=== PATIENT | female | born 1965 | race Caucasian/White ===

== ENCOUNTER 2025-07-05 12:19 | Emergency (ER) | payer BC, MEDICAID ==
[~2025-07-05] VITALS: Ht 162.6 cm; Wt 59.9 kg
[2025-07-05 13:59] LABS: PLATELET COUNT (AUTO) 190 K/uL (150-450); RED BLOOD CELL COUNT(AUTO) 4.70 MIL/uL (4.0-5.2); RED CELL DISTRIBUTION WIDTH 14.1 % (11.5-15.0); WHITE BLOOD COUNT (AUTO) 5.9 K/uL (4.3-11.0)
[2025-07-05 14:18] LABS: CALCIUM, SERUM 8.4 mg/dL (8.5-10.1); CREATININE 0.9 mg/dL (0.6-1.3); SODIUM SERUM 141 mmol/L (136-145); UREA NITROGEN, BLOOD 15 mg/dL (7-18)
[2025-07-05 14:22] LABS: ALCOHOL, BLOOD < 3 mg/dL (0-10); ASPARTATE AMINOTRANSFERASE 18 U/L (15-37); TOTAL PROTEIN, SERUM 7.3 g/dL (6.4-8.2)
[2025-07-05] MEDS ORDERED: MECLIZINE HCL 25 MG TABLET ONE (14:32)
[2025-07-05] MEDS: IV LR 1000 ML 1,000 ML IV ONE (14:35)
[2025-07-05] MEDS: MECLIZINE HCL 25 MG TABLET PO ONE (14:36)
[2025-07-05 14:56] LABS: APPEARANCE,URINE CLEAR (CLEAR); BLOOD, URINE TRACE-INTA Ery/uL (NEGATIVE); LEUKOCYTE ESTERASE ,URINE NEGATIVE (NEGATIVE); NITRITE, URINE NEGATIVE (NEGATIVE); UGLUCOSE NEGATIVE (NEGATIVE)
[2025-07-05 15:08] LABS: AMPHETAMINE, URINE NEGATIVE (NEGATIVE); BARBITURATE, URINE NEGATIVE (NEGATIVE); BENZODIAZEPINE, URINE NEGATIVE (NEGATIVE); COCCAINE, URINE NEGATIVE (NEGATIVE); OPIATE, URINE NEGATIVE (NEGATIVE)
[2025-07-05 15:09] LABS: CANNABINOID, URINE POSITIVE (NEGATIVE)
[2025-07-05 15:13] LABS: ADD URINE CULTURE NO; SQUAMOUS EPITHELIAL CELL,UR Few /HPF (None Seen)
[2025-07-05 15:41] VITALS: BP 122/72; TEMP 98.1; O2SAT 97
== END 2025-07-05 15:41 | disposition home or self-care (01) ==
LOC: ER 12:27
DX: R55 Syncope and collapse (principal); Z79.899 Other long term (current) drug therapy
CPT/HCPCS: 99285; 96360; 93005; 70450; 85025; 80048; 80076; 81001; 36415; 84484; 80143; 80320; 80307; J8597; J7120 ×2; G0480